=== PATIENT | male | born 1960 ===

== ENCOUNTER 2022-05-22 14:03 | Emergency (ER) | payer SELFPAY ==
[2022-05-22] MEDS ORDERED: Albuterol/Ipratropium 3.0-0.5 MG/3 ML Neb Soln NEB ONE (14:07)
[2022-05-22] MEDS ORDERED: LORazepam 2 MG/ML SDV ONE (14:23)
[2022-05-22 14:43] LABS: ANION GAP 18.2 mEq/L (7-13); CHLORIDE,CL 99 mmol/L (98-107); SODIUM,NA 136 mmol/L (136-145)
[2022-05-22 14:54] LABS: ESTIMATED GFR 95 mL/min (>=60)
== END 2022-05-22 15:29 ==
LOC: DL.ED 14:03
DX: Z53.21 Procedure and treatment not carried out due to patient leaving prior to being seen by health care provider (principal)
CPT/HCPCS: 36415; 80053; 83605; 84484; 85025; 87040